=== PATIENT | male | born 1970 | race Caucasian/White ===

== ENCOUNTER 2022-05-03 09:24 | Outpatient (CLI) | payer OTHER, SELFPAY | END 2022-05-03 09:25 | disposition home or self-care (01) | LOC: LKVREF 05-06 11:13 | PROVIDERS: PCP Family Medicine; Visit Provider Family Medicine | DX: Z00.00 Encounter for general adult medical examination without abnormal findings (principal); Z13.6 Encounter for screening for cardiovascular disorders; Z12.5 Encounter for screening for malignant neoplasm of prostate | CPT/HCPCS: 80053; 80061; 84153 ==

== ENCOUNTER 2023-02-13 11:32 | Outpatient (CLI) | payer OTHER, SELFPAY ==
--- NOTE | 2023-02-13 06:36 | W.ANESCHARGE ---
Anesthesia Charges Start Date/Time Anesthesia Start Date: 02/13/23 Anesthesia Start Time: 12:05 Stop Date/Time Anesthesia Stop Date: 02/13/23 Anesthesia Stop Time: 12:34
--- NOTE | 2023-02-13 11:00 | PM.ANHP ---
[facility] Medical History (Updated 01/13/23 @ 08:13 by Misael Hernandez MD) Encounter for health maintenance examination (09/2016) ?Z00.00 - Encounter for general adult medical examination without abnormal findings (ICD-10) Family History (Updated 04/08/22 @ 08:53 by Akosua Youssef) Other Diabetes Social History Smoking Status: Never smoker Little interest or pleasure in doing things: not at all Feeling down, depressed, or hopeless: not at all Meds Home Medications and Allergies Allergies Allergy/AdvReac Type Severity Reaction Status Date / Time No Known Allergies Allergy Unknown Verified 01/13/23 07:55
--- NOTE | 2023-02-13 12:44 | W.ANESCHARGE ---
Anesthesia Charges Start Date/Time Anesthesia Start Date: 02/13/23 Anesthesia Start Time: 12:05 Stop Date/Time Anesthesia Stop Date: 02/13/23 Anesthesia Stop Time: 12:34
--- NOTE | 2023-03-01 08:45 | W.ANESCHARGE ---
Anesthesia Charges Start Date/Time Anesthesia Start Date: 02/13/23 Anesthesia Start Time: 12:05 Stop Date/Time Anesthesia Stop Date: 02/13/23 Anesthesia Stop Time: 12:34
== END 2023-02-13 11:33 | disposition home or self-care (01) ==
LOC: OP CLINIC 11:32
PROVIDERS: PCP Family Medicine; Visit Provider Surgery
DX: Z12.11 Encounter for screening for malignant neoplasm of colon (principal)
CPT/HCPCS: 00811; 45378; J2704